=== PATIENT | female | born 1995 | race Caucasian/White ===

== ENCOUNTER 2022-06-29 09:15 | Outpatient (CLI) | payer OTHER, SELFPAY ==
[2022-06-29 15:35] LABS: Iron* 68 ug/dL (37-170)
[2022-06-29 16:10] LABS: Ferritin* 7.3 ng/mL (6.24-137.0)
== END 2022-06-29 09:16 | disposition home or self-care (01) ==
LOC: LKVREF 09:16
PROVIDERS: PCP Family Medicine; Visit Provider Family Medicine
DX: Z01.818 Encounter for other preprocedural examination (principal); D64.9 Anemia, unspecified
CPT/HCPCS: 82728; 83540